=== PATIENT | female | born 1980 | race Caucasian/White ===

== ENCOUNTER 2019-01-24 13:27 | Emergency (ER) | payer OTHER ==
[~2019-01-24] VITALS: Ht 162.6 cm; Wt 81.0 kg
[2019-01-24 13:54] VITALS: Ht 162.6 cm; Wt 81.0 kg
[2019-01-24 15:24] VITALS: BP 113/67
== END 2019-01-24 16:22 | disposition home or self-care (01) ==
LOC: ED 13:27
DX: S09.8XXA Other specified injuries of head, initial encounter (principal); S29.012A Strain of muscle and tendon of back wall of thorax, initial encounter; S56.911A Strain of unspecified muscles, fascia and tendons at forearm level, right arm, initial encounter; S76.912A Strain of unspecified muscles, fascia and tendons at thigh level, left thigh, initial encounter; Z88.8 Allergy status to other drugs, medicaments and biological substances; Y04.0XXA Assault by unarmed brawl or fight, initial encounter; Y93.89 Activity, other specified; Y92.89 Other specified places as the place of occurrence of the external cause; Y99.8 Other external cause status
CPT/HCPCS: 36415; Q0162